=== PATIENT | male | born 1975 | race Caucasian/White ===

== ENCOUNTER 2024-06-08 13:22 | Outpatient (CLI) | payer BC ==
[~2024-06-08 13:22] MED LIST: Magnevist 469MG/ML 20 ML VIAL ONE
== END 2024-06-08 13:23 | disposition home or self-care (01) ==
LOC: CSHMRI 13:22
PROVIDERS: ATTEND Urology
DX: C61 Malignant neoplasm of prostate (principal)
CPT/HCPCS: 72197